=== PATIENT | male | born 1970 | race Caucasian/White ===

== ENCOUNTER 2020-01-22 19:03 | Emergency (ER) | payer SELFPAY ==
[~2020-01-22] VITALS: Ht 182 cm; Wt 130.0 kg
--- OUTSIDE RECORDS SUMMARY | 2020-01-22 19:09 | XMS REPORT ---
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 VITAL SIGNS Blood pressure systolic 164 mmHg 2016-10-25 Blood pressure diastolic 93 mmHg 2016-10-25 MEDICATIONS No Known Medications RESULTS No Results PROCEDURES Procedure Date Ordered Result Body Site Periodontal scaling and root Oct 25, 2016 Periodontal scaling and root Oct 25, 2016 IMMUNIZATIONS No Known Immunizations MEDICAL (GENERAL) HISTORY Type Description Date Surgical History gallbladder Hospitalization History see above surgery
--- OUTSIDE RECORDS SUMMARY | 2020-01-22 19:09 | XMS REPORT ---
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
--- OUTSIDE RECORDS SUMMARY | 2020-01-22 19:09 | XMS REPORT ---
Author Author Paresh SANDERS [facility] eClinicalWorks Address Unknown Phone Unavailable Care Team Providers Care Bench Lathe Operator Name Role Phone STACIE SANDERS CP Unavailable Allergies No Known Allergies Problems No Known Problems Medications No Known Medications Results No Known Results Summary Purpose eClinicalWorks Submission
--- OUTSIDE RECORDS SUMMARY | 2020-01-22 19:09 | XMS REPORT ---
Author Paresh Darden [facility] eClinicalWorks Address Unknown Phone Unavailable Care Team Providers Care Coding Manager Name Role Phone MANUEL HOLLINGSWORTH CP Unavailable Allergies, Adverse Reactions, Alerts Substance Reaction Event Type N.K.D.A. Info Not Available Non Drug Allergy Problems Problem Type Condition Code Onset Dates Condition Statu s Assessment Dental examination Z01.20 Active Medications Medication Code System Code Instructions Start Date End Date Status Dosage Acetaminophen-Codeine [facility][NOTE 3] [address]-04 300-15 MG Orally e very 6 hrs Jun 12, 2016 Jun 16, 2016 1 tablet as needed Motrin IB [facility][NOTE 3] [address]-81 600 mg Orally every 6 hrs 1 tablet as needed [place] [facility][NOTE 3] [address]-37 5-325 MG Orally every 6 hrs 1 tablet as needed Amoxicillin [facility][NOTE 3] [address]-98 500 MG Orally Four times a day 1 capsule Procedures Procedure Coding System Code Date INTRAORL-PERIAPICAL 1 FILM 53890 CPT-4 D0220 Jun 12, 2016 INTRAORL-PERIAPICAL EA ADD FILM CPT-4 D0230 Jun 12, 2016 LTD ORAL EVALUATION - PROBLEM FOCUS CPT-4 D0140 Jun 12, 2016 Vital Signs Date/Time: Jun 12, 2016 Blood Pressure Diastolic 107 mmHg Blood Pressure Systolic 156 mmHg Results No Known Results Summary Purpose eClinicalWorks Submission
--- OUTSIDE RECORDS SUMMARY | 2020-01-22 19:09 | XMS REPORT ---
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 Acti ve [id number] Problem Dental examination Z01.20 Active 1 [id number] ALLERGIES No Known Allergies SOCIAL HISTORY Never Assessed PLAN OF CARE Activity Details Follow Up CONRAD Reason:RESTORATIVE dds DANNY VITAL SIGNS Blood pressure systolic 167 mmHg 2016-10-24 Blood pressure diastolic 96 mmHg 2016-10-24 MEDICATIONS No Known Medications RESULTS No Results PROCEDURES Procedure Date Ordered Result Body Site Periodontal scaling and root Oct 29, 2016 Periodontal scaling and root Oct 29, 2016 IMMUNIZATIONS No Known Immunizations MEDICAL (GENERAL) HISTORY Type Description Date Surgical History gallbladder Hospitalization History see above surgery
--- OUTSIDE RECORDS SUMMARY | 2020-01-22 19:09 | XMS REPORT ---
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 Unknown Non Drug Allergy Jul, Unknown SOCIAL HISTORY No smoking Hx information available PLAN OF CARE Activity Details Follow Up prn Reason:hakeem/hygiene VITAL SIGNS Blood pressure systolic 151 mmHg 2016-07-23 Blood pressure diastolic 99 mmHg 2016-07-23 MEDICATIONS No Known Medications RESULTS No Results PROCEDURES Procedure Date Ordered Related Diagnosis Body Site EXTRAC ERUPTED TOOTH/EXPOSED ROOT Jul 23, 2016 EXTRAC ERUPTED TOOTH/EXPOSED ROOT Jul 23, 2016 IMMUNIZATIONS No Known Immunizations
--- OUTSIDE RECORDS SUMMARY | 2020-01-22 19:09 | XMS REPORT ---
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
--- OUTSIDE RECORDS SUMMARY | 2020-01-22 19:10 | XMS REPORT ---
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 Unknown Non Drug Allergy Sep, Unknown SOCIAL HISTORY No smoking Hx information available PLAN OF CARE Activity Details Follow Up 2 Weeks Reason:SRP/KATH VITAL SIGNS Blood pressure systolic 127 mmHg 2016-09-02 Blood pressure diastolic 78 mmHg 2016-09-02 MEDICATIONS No Known Medications RESULTS No Results PROCEDURES Procedure Date Ordered Related Diagnosis Body Site INTRAORL-PERIAPICAL 1 FILM 48539 Sep 02, 2016 INTRAORL-PERIAPICAL EA ADD FILM Sep 02, 2016 BITEWINGS - FOUR FILMS Sep 02, 2016 INTRAORL-PERIAPICAL EA ADD FILM Sep 02, 2016 Full mouth debridement Sep 02, 2016 PANORAMIC FILM SEE ALSO CODE 89585 Sep 02, 2016 IMMUNIZATIONS No Known Immunizations
--- OUTSIDE RECORDS SUMMARY | 2020-01-22 19:10 | XMS REPORT | Continuity of Care Document ---
Author Organization Unknown Address Unknown Phone Unavailable Allergies There is no data. Medications There is no data. Problems Date Dx Coded Attending Type Code Diagnosis Diagnosed By 06/23/2015 EDGAR TALLEY DO Ot M54.5 06/23/2015 EDGAR TALLEY DO Ot M54.5 06/30/2015 EDGAR TALLEY DO Ot M54.5 07/21/2015 EDGAR TALLEY DO Ot M25.561 08/01/2015 EDGAR TALLEY DO Ot M25.561 Procedures There is no data. Results There is no data. Encounters ACCT No. Visit Date/Time Discharge Status Pt. Type Provider Facility Loc./Unit Complaint [id number] 07/07/2015 10:32:00 23:59:59 [facility] Outpatient EDGAR TALLEY DO [facility] [id number] 06/08/2015 11:33:00 23:59:59 [facility] Outpatient EDGAR TALLEY DO [facility]
--- NOTE | 2020-01-22 19:19 | ED Abdominal Pain ---
General Chief Complaint: Abdominal/GI Problems Stated Complaint: COUGH, N/V, RLQ PAIN Source of Information: Patient Exam Limitations: No Limitations History of Present Illness Date Seen by Provider: January 22, 2020 Time Seen by Provider: 19:17 Initial Comments Nonproductive cough, nausea vomiting since yesterday. Sudden onset of right l ower quadrant abdominal pain 15 minutes prior to arrival no diarrhea no fevers. The sudden onset of pain began during a coughing episode. No travel other than to walk around the block at his house. No exposure to ill contacts. No shortness of breath. No body aches sore throat or headache. Timing/Duration: 1-2 Days Severity/Quality: Moderate Location: RLQ Radiation: No Radiation Activities at Onset: None Associated Symptoms: Nausea/Vomiting Allergies and Home Medications Allergies Coded Allergies: No Known Drug Allergies (Unverified , 01/22/20) Patient Home Medication List Home Medication List Reviewed: Yes Review of Systems Review of Systems Constitutional: see HPI EENTM: See HPI Respiratory: See HPI, Cough Cardiovascular: See HPI Gastrointestinal: See HPI, Abdominal Pain, Nausea Genitourinary: No Symptoms Reported Musculoskeletal: no symptoms reported Skin: no symptoms reported Psychiatric/Neurological: No Symptoms Reported Endocrine: No Symptoms Reported Hematologic/Lymphatic: No Symptoms Reported Past Ckhujmd-Wcdfez-Fojuoy Hx Patient Social History Recent Foreign Travel: No Contact w/Someone Who Travel: No Physical Exam Vital Signs Vital Signs - First Documented 01/22/20 19:17 Temp 36.5 Pulse 101 Resp 20 B/P (MAP) 156/93 (114) Pulse Ox 98 O2 Delivery Room Air Capillary Refill : Height/Weight/BMI Height: '" Weight: lbs. oz. kg; BMI Method: General Appearance: WD/WN, no apparent distress, obese HEENT: PERRL/EOMI, normal ENT inspection Respiratory: no respiratory distress, no accessory muscle use Cardiovascular: regular rate, rhythm, no murmur Gastrointestinal: normal bowel sounds, soft, tenderness Extremities: normal range of motion, non-tender Neurologic/Psychiatric: alert, normal mood/affect, oriented x 3 Skin: normal color, warm/dry Progress/Results/Core Measures Results/Orders Lab Results Laboratory Tests Test 01/22/20 19:15 01/22/20 19:43 Range/Units White Blood Count 9.0 4.3-11.0 10^3/uL Red Blood Count 5.29 4.35-5.85 10^6/uL Hemoglobin 16.6 13.3-17.7 G/DL Hematocrit 49 40-54 % Mean Corpuscular Volume 93 80-99 FL Mean Corpuscular Hemoglobin 31 25-34 PG Mean Corpuscular Hemoglobin Concent 34 32-36 G/DL Red Cell Distribution Width 13.5 10.0-14.5 % Platelet Count 217 130-400 10^3/uL Mean Platelet Volume 11.4 H 7.4-10.4 FL Neutrophils (%) (Auto) 57 42-75 % Lymphocytes (%) (Auto) 32 12-44 % Monocytes (%) (Auto) 9 0-12 % Eosinophils (%) (Auto) 1 0-10 % Basophils (%) (Auto) 1 0-10 % Neutrophils # (Auto) 5.2 1.8-7.8 X 10^3 Lymphocytes # (Auto) 2.9 1.0-4.0 X 10^3 Monocytes # (Auto) 0.8 0.0-1.0 X 10^3 Eosinophils # (Auto) 0.1 0.0-0.3 10^3/uL Basophils # (Auto) 0.1 0.0-0.1 10^3/uL Sodium Level 141 135-145 MMOL/L Potassium Level 4.5 3.6-5.0 MMOL/L Chloride Level 107 98-107 MMOL/L Carbon Dioxide Level 17 L 21-32 MMOL/L Anion Gap 17 H 5-14 MMOL/L Blood Urea Nitrogen 22 H 7-18 MG/DL Creatinine 1.47 H 0.60-1.30 MG/DL Estimat Glomerular Filtration Rate 51 BUN/Creatinine Ratio 15 Glucose Level 130 H 70-105 MG/DL Calcium Level 9.9 8.5-10.1 MG/DL Corrected Calcium 9.5 8.5-10.1 MG/DL Total Bilirubin 1.2 H 0.1-1.0 MG/DL Aspartate Amino Transf (AST/SGOT) 95 H 5-34 U/L Alanine Aminotransferase (ALT/SGPT) 106 H 0-55 U/L Alkaline Phosphatase 66 40-136 U/L C-Reactive Protein High Sensitivity 0.19 0.00-0.50 MG/DL Total Protein 8.7 H 6.4-8.2 GM/DL Albumin 4.5 3.2-4.5 GM/DL Urine Color DARK YELLOW Urine Clarity CLEAR Urine pH 5.5 5-9 Urine Specific [place] >=1.030 1.016-1.022 Urine Protein TRACE H NEGATIVE Urine Glucose (UA) NEGATIVE NEGATIVE Urine Ketones NEGATIVE NEGATIVE Urine Nitrite NEGATIVE NEGATIVE Urine Bilirubin 1+ H NEGATIVE Urine Urobilinogen 0.2 < = 1.0 MG/DL Urine Leukocyte Esterase NEGATIVE NEGATIVE Urine RBC (Auto) NEGATIVE NEGATIVE Urine RBC NONE /HPF Urine WBC NONE /HPF Urine Squamous Epithelial Cells NONE /HPF Urine Crystals PRESENT H /LPF Urine Amorphous Sediment MOD LORETO URATES H /LPF Urine Bacteria FEW H /HPF Urine Casts NONE /LPF Urine Mucus MODERATE H /LPF Urine Culture Indicated YES My Orders Orders - YOVANA NEGRO APRN Cbc With Automated Diff (01/22/20 19:16) Comprehensive Metabolic Panel (01/22/20 19:16) Hs C Reactive Protein (01/22/20 19:16) Ed Iv/Invasive Line Start (01/22/20 19:16) Chest Pa/Lat (2 View) (01/22/20 19:16) Ct Abd/Pelvis Wo(Kidney Stone) (01/22/20 19:16) Ketorolac Injection (Toradol Injection) (01/22/20 19:30) Ua Culture If Indicated (01/22/20 19:28) Urine Culture (01/22/20 19:43) Lactated Ringers (Lr 1000 Ml Iv Solution (01/22/20 20:30) Metoprolol Succinate (Xl) Tab (Toprol Xl (01/22/20 20:45) Medications Given in ED Current Medications Medications Dose Ordered Sig/Johnny Route Start Time Stop Time Status Last Admin Dose Admin Ketorolac Tromethamine 15 mg ONCE ONCE IVP 01/22/20 19:30 01/22/20 19:31 DC 01/22/20 19:26 15 MG Vital Signs/I&O 01/22/20 19:17 Temp 36.5 Pulse 101 Resp 20 B/P (MAP) 156/93 (114) Pulse Ox 98 O2 Delivery Room Air Diagnostic Imaging Diagonstic Imaging: CT Comments NAME: NAZIA ORDAZ Domenica [facility] REC#: [id number] PT STATUS: REG ER : 1970 PHYSICIAN: YOVANA NEGRO APRN ADMIT DATE: 01/22/20/ER Draft Date of Exam:01/22/20 CT ABD/PELVIS WO(KIDNEY STONE) PROCEDURE: CT urinary tract, rule out kidney stone. TECHNIQUE: Multiple contiguous axial images were obtained through the abdomen and pelvis without the use of intravenous contrast. Auto Exposure Controls were utilized during the CT exam to meet ALARA standards for radiation dose reduction. INDICATION: Right flank pain. FINDINGS: There are extra ureteral pelvic phleboliths present. No radiopaque ureteral stone. There is no hydroureteronephrosis. The unopacified urinary bladder appeared nonfocal. No perinephric edema. The appendix is well visualized and normal. There is no bowel obstruction. The gallbladder surgically absent. The pancreas nonfocal and nonacute. There are few low density foci in the left renal cortex likely small cysts but their evaluation limited by the absence of contrast. The spleen, adrenals, and pancreas unremarkable. The aorta is nonaneurysmal. IMPRESSION: 1. Unobstructed urinary tracts. No radiodense stone. No evidence of appendicitis, diverticulitis or obstructive features. Hyperdensities in the left renal cortex likely cysts but cannot be further characterized owing to the absence of contrast. 2. No acute appearing abnormality identified. Dictated on workstation # [id number] Dict: 01/22/201935 Trans: 01/22/201941 FATOUMATA [id number] Interpreted by: HARDEEP MAYFIELD Electronically signed by: Departure Communication (Admissions) He takes no medication for hypertension, he does have kidney injury, this may be ineffective volume depletion or long-standing hypertension. I will Start him on antihypertensive. Impression Primary Impression: Abdominal wall pain Additional Impressions: Renal insufficiency Hypertension Disposition: 01 HOME, SELF-CARE Condition: Stable Departure-Patient Inst. Decision time for Depature: 19:35 Referrals: EDGAR TALLEY DO (PCP/Family) Primary Care Physician Patient Instructions: Abdominal Muscle Strain, High Blood Pressure (DC) Add. Discharge Instructions: 1. Tylenol and for pain control. You can use over the counter Dayquil and Nyquil for cough control. Blood pressure medication as directed, Call Dr Talley on Friday for an appointment for follow up. Scripts Metoprolol Succinate (Toprol Xl) 50 Mg Tab.er.24h 50 MG PO DAILY, #30 TAB Prov: YOVANA NEGRO APRN 01/22/20 YOVANA NEGRO APRN January 22, 2020 19:19
[2020-01-22 19:28] LABS: BASOPHILS # (AUTO) 0.1 10^3/uL (0.0-0.1); BASOPHILS % (AUTO) 1 % (0-10); EOSINOPHILS # (AUTO) 0.1 10^3/uL (0.0-0.3); EOSINOPHILS % (AUTO) 1 % (0-10); HEMATOCRIT 49 % (40-54); HEMOGLOBIN 16.6 G/DL (13.3-17.7); LYMPHOCYTES # (AUTO) 2.9 X 10^3 (1.0-4.0); LYMPHOCYTES % (AUTO) 32 % (12-44); MEAN CORPUSCULAR HEMOGLOBIN 31 PG (25-34); MEAN CORPUSCULAR HGB CONC 34 G/DL (32-36); MEAN CORPUSCULAR VOLUME 93 FL (80-99); MEAN PLATELET VOLUME 11.4 FL (7.4-10.4); MONOCYTES # (AUTO) 0.8 X 10^3 (0.0-1.0); MONOCYTES % (AUTO) 9 % (0-12); NEUTROPHILS # (AUTO) 5.2 X 10^3 (1.8-7.8); NEUTROPHILS % (AUTO) 57 % (42-75); PLATELET COUNT 217 10^3/uL (130-400); RED CELL DISTRIBUTION WIDTH 13.5 % (10.0-14.5)
[2020-01-22] MEDS ORDERED: KETOROLAC 30 MG/ML VIAL IVP ONE (19:30)
--- NOTE | 2020-01-22 19:44 | Diagnostic Imaging Report ---
PROCEDURE: CT urinary tract, rule out kidney stone. TECHNIQUE: Multiple contiguous axial images were obtained through the abdomen and pelvis without the use of intravenous contrast. Auto Exposure Controls were utilized during the CT exam to meet ALARA standards for radiation dose reduction. INDICATION: Right flank pain. FINDINGS: There are extra ureteral pelvic phleboliths present. No radiopaque ureteral stone. There is no hydroureteronephrosis. The unopacified urinary bladder appeared nonfocal. No perinephric edema. The appendix is well visualized and normal. There is no bowel obstruction. The gallbladder surgically absent. The pancreas nonfocal and nonacute. There are few low density foci in the left renal cortex likely small cysts but their evaluation limited by the absence of contrast. The spleen, adrenals, and pancreas unremarkable. The aorta is nonaneurysmal. IMPRESSION: 1. Unobstructed urinary tracts. No radiodense stone. No evidence of appendicitis, diverticulitis or obstructive features. Hyperdensities in the left renal cortex likely cysts but cannot be further characterized owing to the absence of contrast. 2. No acute appearing abnormality identified. Dictated by: Dictated on workstation # [id number]
--- NOTE | 2020-01-22 19:51 | Diagnostic Imaging Report ---
INDICATION: Flank pain FINDINGS: The lungs are clear. No failure, effusion or pneumothorax. No free air beneath the diaphragms. IMPRESSION: Negative Dictated by: Dictated on workstation # [id number]
[2020-01-22 19:53] LABS: BILIRUBIN,URINE 1+ (NEGATIVE); CLARITY,URINE CLEAR; COLOR,URINE DARK YELLOW; GLUCOSE, URINE (UA) NEGATIVE (NEGATIVE); KETONES,URINE NEGATIVE (NEGATIVE); LEUKOCYTE ESTERASE ,URINE NEGATIVE (NEGATIVE); NITRITE,URINE NEGATIVE (NEGATIVE); PH,URINE 5.5 (5-9); PROTEIN,URINE TRACE (NEGATIVE)
[2020-01-22 20:18] LABS: ALBUMIN 4.5 GM/DL (3.2-4.5)
[2020-01-22 20:19] LABS: CALCIUM 9.9 MG/DL (8.5-10.1)
[2020-01-22 20:20] LABS: TOTAL PROTEIN 8.7 GM/DL (6.4-8.2)
[2020-01-22 20:22] LABS: BILIRUBIN,TOTAL 1.2 MG/DL (0.1-1.0); POTASSIUM 4.5 MMOL/L (3.6-5.0)
[2020-01-22 20:24] LABS: CREATININE SERUM 1.47 MG/DL (0.60-1.30)
[2020-01-22 20:29] LABS: AMORPHOUS SEDIMENT,UR MOD AMOR URATES /LPF; BACTERIA,URINE FEW /HPF
[2020-01-22] MEDS ORDERED: LACTATED RINGERS 1,000 ML IV SCH (20:30)
[2020-01-22] MEDS ORDERED: METO-352 PO (20:41)
[2020-01-22] MEDS ORDERED: meTOproloL SUCCINATE 50 MG (TOPROL XL) TAB PO SCH (20:45)
[2020-01-22 21:11] VITALS: BP 158/91
== END 2020-01-22 21:11 | disposition home or self-care (01) ==
LOC: EDUNIT# 19:03 → ER 19:05
DX: N28.9 Disorder of kidney and ureter, unspecified (principal); I10 Essential (primary) hypertension
CPT/HCPCS: 36415; 71046; 74176; 80053; 81000; 85025; 86141; 87088

== ENCOUNTER → 2020-02-15 | Outpatient (CLI) | payer OTHER ==
[~2020-02-15] MED LIST: METO-352 PO
[2020-02-15 09:36] LABS: ALBUMIN 4.2 GM/DL (3.2-4.5); BILIRUBIN,TOTAL 0.5 MG/DL (0.1-1.0); CALCIUM 9.4 MG/DL (8.5-10.1); CREATININE SERUM 1.29 MG/DL (0.60-1.30); POTASSIUM 4.2 MMOL/L (3.6-5.0); TOTAL PROTEIN 8.1 GM/DL (6.4-8.2)
== END ==
LOC: LAB 08:52
PROVIDERS: ATTEND Family Medicine
DX: I10 Essential (primary) hypertension (principal); R94.5 Abnormal results of liver function studies
CPT/HCPCS: 36415; 80053; 80061

== ENCOUNTER → 2020-03-28 | Outpatient (CLI) | payer SELFPAY ==
[2020-03-28 09:08] LABS: ALBUMIN 4.3 GM/DL (3.2-4.5); BILIRUBIN,DIRECT 0.3 MG/DL (0.0-0.3); BILIRUBIN,INDIRECT 0.6 MG/DL; BILIRUBIN,TOTAL 0.9 MG/DL (0.1-1.0); TOTAL PROTEIN 7.8 GM/DL (6.4-8.2)
== END ==
LOC: LAB 08:30
PROVIDERS: ATTEND Family Medicine
DX: R94.5 Abnormal results of liver function studies (principal)
CPT/HCPCS: 36415; 80076

== ENCOUNTER → 2023-01-24 | Outpatient (CLI) | payer OTHER ==
[2023-01-24 10:11] LABS: HEMATOCRIT 51 % (40-54); HEMOGLOBIN 17.2 g/dL (13.3-17.7); MEAN CORPUSCULAR HEMOGLOBIN 32 pg (25-34); MEAN CORPUSCULAR HGB CONC 34 g/dL (32-36); MEAN CORPUSCULAR VOLUME 94 fL (80-99); MEAN PLATELET VOLUME 10.8 fL (9.0-12.2); PLATELET COUNT 209 10^3/uL (130-400); WHITE BLOOD COUNT 7.3 10^3/uL (4.3-11.0)
[2023-01-24 10:19] LABS: ALBUMIN 4.3 GM/DL (3.2-4.5); POTASSIUM 3.8 MMOL/L (3.6-5.0)
[2023-01-24 10:20] LABS: CALCIUM 9.7 MG/DL (8.5-10.1)
[2023-01-24 10:23] LABS: BILIRUBIN,TOTAL 0.8 MG/DL (0.1-1.0)
[2023-01-24 10:25] LABS: CREATININE SERUM 1.37 MG/DL (0.60-1.30)
== END ==
LOC: LAB 09:53
PROVIDERS: ATTEND Family Medicine
DX: I10 Essential (primary) hypertension (principal); R97.20 Elevated prostate specific antigen [PSA]
CPT/HCPCS: 80053; 80061; 85027; G0103; 36415; 84153